=== PATIENT | male | born 2000 | race Caucasian/White ===

== ENCOUNTER 2024-07-31 03:05 | Emergency (ER) | payer MEDICAID, OTHER ==
[~2024-07-31] VITALS: Ht 177.8 cm; Wt 90.9 kg
[2024-07-31 04:37] LABS: Basophils # (auto) 0 10 ^3/uL (0-0.2); Basophils % (auto) 0.8 % (0.0-2.0); Eosinophils # (auto) 0 10 ^3/uL (0-0.8); Eosinophils % (auto) 0.2 % (0.0-7.0); Hematocrit 49.1 % (41.0-53.0); Hemoglobin 16.7 g/dL (13.5-17.5); Lymphocytes # (auto) 1.5 10 ^3/uL (0.4-5.4); Lymphocytes % (auto) 28.1 % (10.0-50.0); Mean Corpuscular Hemoglobin 29.8 pg (28.0-32.0); Mean Corpuscular Hgb Conc. 34.1 g/dL (32.0-36.0); Mean Corpuscular Volume 87.4 fL (80.0-100.0); Monocytes # (auto) 0.3 10 ^3/uL (0-1.3); Monocytes % (auto) 4.6 % (0.0-12.0); Neutrophils # (auto) 3.6 10 ^3/uL (1.6-8.6); Neutrophils % (auto) 66.3 % (37.0-80.0); Nucleated Red Blood Cells % 0.1 %; Platelet Count (auto) 291 10^3/uL (140-450); Red Blood Cells 5.61 10^6/uL (4.5-5.90); Red Cell Distribution Width 13.7 % (11.8-14.3); White Blood Cell 5.4 10^3/uL (4.4-10.8)
[2024-07-31 04:59] LABS: Alanine Aminotransferase 31 U/L (7-40); Alkaline Phosphatase 115 U/L (46-116); Anion Gap 10 (5-15); Aspartate Aminotransferase 37 U/L (13-40); BUN/Creatinine Ratio 14.9 (10.0-20.0); Blood Alcohol 181.9 mg/dL (<10); Blood Urea Nitrogen 13 mg/dL (9-23); Calcium 9.9 mg/dL (8.7-10.4); Carbon Dioxide 26 mmol/L (20-31); Chloride 104 mmol/L (98-107); Glucose 102 mg/dL (74-106); Sodium 140 mmol/L (136-145)
[2024-07-31 05:00] LABS: Bilirubin, Total 0.9 mg/dL (0.2-1.0); Total Protein 7.8 g/dL (5.7-8.2)
[2024-07-31 05:04] LABS: Albumin 5.1 g/dL (3.2-4.8)
--- NOTE | 2024-07-31 05:12 | ED.PDOC ---
History of Present Illness HPI Comments 24 y/o M, with a history of asthma and polysubstance abuse, presents with his girlfriend and mother for c/o chest pain and palpitations, today. Patient is a poor historian. Per girlfriend, patient began complaining of symptoms after being picked up from a bar, where he endorses on consuming both alcohol and cocaine there, earlier, at 0140. He is stated to vomited 1x prior to onset of symptoms. Patient also reported to girlfriend on suspecting that the cocaine he consumed being "something else." due to never experiencing symptoms like current ones before with previous uses. Patient has no reported palpitations, dizziness, weakness, fever, chills, or other associated symptoms or modifiers at this time. Chief Complaint: Chest Pain Time Seen by MD: 03:30 Primary Care Provider: NONE Reviewed Notes: Nurses Notes, Medications, Allergies Information Source: Relative (Mother), Significant Other Mode of Arrival: Ambulatory Severity: Moderate Timing: Hours Duration: Since onset Prehospital treatment: None Review of Systems: REVIEW OF SYSTEMS: No fever, no chills, or fatigue HEENT: No sore throat, no earache, no congestion, no neck pain. Cardiac: Chest pain, palpitations. Lungs: No shortness of breath, no cough. GI: No nausea, no vomiting, no diarrhea, no constipation, no abdominal pain : No dysuria, frequency, or urgency. No hematuria. Musculoskeletal: No joint pain , no joint swelling, no extremity edema. Skin: No rash, no itching. Neuro: No headache, no dizziness, no weakness Vital Signs Vital Signs Date Time Temp Pulse Resp B/P (MAP) Pulse Ox O2 Delivery O2 Flow Rate FiO2 07/31/24 05:12 111 07/31/24 03:33 26 100 0 07/31/24 03:33 98.4 146/82 (103) Physical Exam General: Lethargic. No acute distress. Patient is basically whispering to speak but is unable to answer questions Skin: Skin in warm, dry and intact. Appropriate color for ethnicity. HEENT: The head is normocephalic and atraumatic. Bilateral conjunctival injection, pupils dilated but reactive. No signs of nystagmus. Eyelids are normal in appearance without swelling or lesions. Oral mucosa is pink and moist Neck: The neck is supple with normal range of motion. No JVD. Cardiac: Heart rate and rhythm are normal. No murmurs, gallops, or rubs are auscultated. Respiratory: No signs of respiratory distress. Lung sounds are clear in all lobes bilaterally without rales, ronchi, or wheezes. Abdominal: Abdomen is soft, non-tender without distention. Bowel sounds are present and normoactive in all four quadrants. Extremities: Upper and lower extremities are atraumatic in appearance without deformity or edema. Neurological: The patient is awake, alert and oriented to person, place, and time with normal speech. Speech is clear. There is no facial asymmetry. Psychiatric: Appropriate mood and affect. Good judgement and insight. No visual or auditory hallucinations. Past Medical History PAST MEDICAL HISTORY: Asthma Surgical History: Denies all surgeries Family History Family History: Unknown Social History Smoker: Non-Smoker Alcohol: Heavy Drugs: Cocaine Lives In: Home Was a procedure done? Was a procedure done?: No EKG EKG #1: Pulse Rate (adult): 110 [place]: Normal Cardiac Rhythm: ST, PVC's Block: None Hypertrophy: None ST: Normal EKG #2: Pulse Rate (adult): 111 [place]: Normal Cardiac Rhythm: ST, PVC's Block: None Hypertrophy: None ST: Normal Differential Dx Considerations may include: substance abuse, indigestion of unknown substance, IN, PE, ACS, angina, costochondritis, pericarditis, withdrawal, anxiety, panic attack, musculoskeletal pain X-Ray, Labs, Meds, VS Vital Signs Date Time Temp Pulse Resp B/P (MAP) Pulse Ox O2 Delivery O2 Flow Rate FiO2 07/31/24 05:12 111 07/31/24 03:33 107 26 100 0 07/31/24 03:33 98.4 107 26 146/82 (103) 100 07/31/24 03:29 110 Lab Test 07/31/24 05:29 07/31/24 05:22 07/31/24 04:02 Range/Units Troponin I High Sensitivity Pending < 3 L </=54 ng/L Urine Color Colorless Yellow Urine Clarity Clear Clear Urine pH 5.5 5.0-9.0 Urine Specific [place] 1.002 1.001-1.035 Urine Protein Negative Negative Urine Ketones Negative Negative Urine Blood Negative Negative /uL Urine Nitrite Negative Negative Urine Bilirubin Negative Negative Urine Urobilinogen Normal Negative mg/dL Urine Leukocyte Esterase Negative Negative /uL Urine RBC <1 0 - 3 /hpf Urine Microscopic WBC < 1 0-3 /HPF Urine Squamous Epithelial Cells None seen <5 /hpf Urine Bacteria None seen None Seen /hpf Urine Glucose Normal Normal mg/dL Urine Opiates Screen Pending Urine Fentanyl Screen Pending Urine Barbiturates Screen Pending Urine Phencyclidine Screen Pending Urine Amphetamines Screen Pending Urine Benzodiazepines Screen Pending Urine Cocaine Screen Pending Urine Cannabinoids Screen Pending White Blood Count 5.4 4.4-10.8 10^3/uL Red Blood Count 5.61 4.5-5.90 10^6/uL Hemoglobin 16.7 13.5-17.5 g/dL Hematocrit 49.1 41.0-53.0 % Mean Corpuscular Volume 87.4 80.0-100.0 fL Mean Corpuscular Hemoglobin 29.8 28.0-32.0 pg Mean Corpuscular Hemoglobin Concent 34.1 32.0-36.0 g/dL Red Cell Distribution Width 13.7 11.8-14.3 % Platelet Count 291 140-450 10^3/uL Mean Platelet Volume 7.4 6.9-10.8 fL Neutrophils (%) (Auto) 66.3 37.0-80.0 % Lymphocytes (%) (Auto) 28.1 10.0-50.0 % Monocytes (%) (Auto) 4.6 0.0-12.0 % Eosinophils (%) (Auto) 0.2 0.0-7.0 % Basophils (%) (Auto) 0.8 0.0-2.0 % Neutrophils # (Auto) 3.6 1.6-8.6 10 ^3/uL Lymphocytes # (Auto) 1.5 0.4-5.4 10 ^3/uL Monocytes # (Auto) 0.3 0-1.3 10 ^3/uL Eosinophils # (Auto) 0 0-0.8 10 ^3/uL Basophils # (Auto) 0 0-0.2 10 ^3/uL Nucleated Red Blood Cells 0.1 % Sodium Level 140 136-145 mmol/L Potassium Level 4.0 3.5-5.1 mmol/L Chloride Level 104 98-107 mmol/L Carbon Dioxide Level 26 20-31 mmol/L Anion Gap 10 5-15 Blood Urea Nitrogen 13 9-23 mg/dL Creatinine 0.87 0.700-1.30 mg/dL Glomerular Filtration Rate Calc 124 >90 mL/min BUN/Creatinine Ratio 14.9 10.0-20.0 Serum Glucose 102 74-106 mg/dL Calcium Level 9.9 8.7-10.4 mg/dL Total Bilirubin 0.9 0.2-1.0 mg/dL Aspartate Amino Transferase (AST) 37 13-40 U/L Alanine Aminotransferase (ALT) 31 7-40 U/L Alkaline Phosphatase 115 46-116 U/L B-Type Natriuretic Peptide 7.74 0-100 pg/mL Total Protein 7.8 5.7-8.2 g/dL Albumin 5.1 H 3.2-4.8 g/dL Plasma/Serum Blood Alcohol 181.9 H <10 mg/dL Time of 1ST Reevaluation: 04:00 Reevaluation 1ST: Unchanged Patient Education/Counseling: Other Family Education/Counseling: No Family Present Departure 1 Departure Time of Disposition: 05:46 Impression: Primary Impression: Chest pain Additional Impression: Alcohol intoxication Disposition: 01 HOME / SELF CARE / HOMELESS Condition: Stable Additional Instructions: ED DISCHARGE INSTRUCTIONS Instructions: Please read all instructions provided in this packet carefully. Although you have been discharged from the Emergency Department, this does not mean that you have a "clean bill of health". No definitive diagnosis for your symptoms has been made today. It is possible that you are in the process of developing a serious illness. This is why you must return to the ED without fail if any new or worsening symptoms (especially if your symptoms include chest pain, trouble breathing, abdominal pain, fever, headache, confusion, trouble seeing, or trouble walking) It is also very important that you see a primary care doctor within the next 3-5 days to follow up. If you are unable to get an appointment, return to the ED for re-evaluation. CHEST PAIN EDUCATION There are many things that can cause chest pain. Some are not serious and will get better on their own in a few days. But some kinds of chest pain need more testing and treatment. Your doctor may have recommended a follow-up visit in the next few days. If you are not getting better, you may need more tests or treatment. Even though your doctor has released you, you still need to watch for any problems. The doctor carefully checked you, but sometimes problems can develop later. If you have new symptoms or if your symptoms do not get better, get medical care right away. If you have worse or different chest pain or pressure that lasts more than 5 minutes or you passed out (lost consciousness), call 911 or seek other emergency help right away. A medical visit is only one step in your treatment. Even if you feel better, you still need to do what your doctor recommends, such as going to all suggested follow-up appointments and taking medicines exactly as directed. This will help you recover and help prevent future problems. How can you care for yourself at home? Rest until you feel better. Take your medicine exactly as prescribed. Call your doctor if you think you are having a problem with your medicine. Do not drive after taking a prescription pain medicine. When should you call for help? Call 911 if: You passed out (lost consciousness). You have severe difficulty breathing. You have symptoms of a heart attack. These may include: Chest pain or pressure, or a strange feeling in your chest. Sweating. Shortness of breath. Nausea or vomiting. Pain, pressure, or a strange feeling in your back, neck, jaw, or upper belly or in one or both shoulders or arms. Lightheadedness or sudden weakness. A fast or irregular heartbeat. After you call 911, the dishing machine operator may tell you to chew 1 adult-strength or 2 to 4 low-dose aspirin. Wait for an ambulance. Do not try to drive yourself. Call your doctor now or seek immediate medical care if: You have any trouble breathing. You have new or different chest pain. You are dizzy or lightheaded, or you feel like you may faint. Watch closely for changes in your health, and be sure to contact your doctor if you do not get better as expected. Current as of: January 19, 2024 Author: [employer] Staff? Drinking and Your Health Drinking too much alcohol on a regular basis harms your liver, nervous system, heart, and brain. It can cause health problems or make them worse. These problems include: Cirrhosis or pancreatitis. High blood pressure. Osteoporosis. Certain types of cancer, including breast cancer. Stroke. A brain disorder called Wernicke-Korsakoff syndrome. Heavy alcohol use also can cause stomach problems, interactions between me dicines and alcohol, and sexual problems. It can lead to violence, accidents, social isolation, and problems at work, school, or home. You also may have legal problems, such as traffic tickets or car crashes, as a result of drinking. Drinking alcohol can cause unique problems for older adults and people who are or who have other health conditions. Drinking also makes symptoms of mental health conditions worse. When you have a drinking problem and a mental health condition, it's called a dual diagnosis. It's very important to treat all mental health conditions, such as depression. You may drink less when mental health conditions are treated. How much alcohol is safe to drink? Experts don't know if alcohol is safe in any amount. If you choose to drink alcohol, the kern is to keep your drinking at low to moderate levels. People who drink too much are hurting their health. Heavy drinking can cause all kinds of problems, from stomach and sexual problems to stroke and liver disease. It can also lead to problems at work, school, or home and to drunk driving and violence. It may be hard to know if you are drinking too much. Because of things like age, sex, weight, and health history, alcohol affects people differently. But here's what experts say: If you don't drink, it's best not to start. If you do drink, limit how much you drink. A standard drink is 12 fl oz (355 mL) of beer, 5 fl oz (148 mL) of wine, or 1.5 fl oz (44 mL) of hard liquor. Experts recommend that: Women have no more than 1 drink a day or 7 drinks a week. Men have no more than 2 drinks a day or 14 drinks a week. If you are 65 years and older, you may want to be even more cautious about the amount of alcohol you drink. Or you may not want to drink at all. This is because alcohol affects older adults differently. Experts consider excessive alcohol use to be high-risk drinking. This includes: Having more than 4 drinks in a day or more than 8 drinks a week if you are a woman. Having more than 5 drinks in a day or more than 15 drinks a week if you are a man. Binge drinking. This means drinking more than 4 drinks within 2 hours if you are a woman or more than 5 drinks within 2 hours if you are a man. It's important to remember that the only way to guarantee that drinking alcohol will not harm you at all is to not drink at all. When is drinking alcohol unhealthy or unsafe? There are certain times when drinking any amount of alcohol is unhealthy. You shouldn't drink if: You need to drive a car or operate other machinery. You are . Drinking during makes a miscarriage or alcohol syndrome more likely. A child who was exposed to alcohol in the womb may have physical and emotional problems. These problems can range from mild difficulties to severe defects. You take certain medicines. Ask your doctor or pharmacist if you can safely drink alcohol with any of the medicines you take. Common medicines that interact with alcohol include: Acetaminophen (such as Tylenol). Antibiotics. Antihistamines. Aspirin and other medicines to prevent clotting of blood (anticoagulants). Tranquilizers. Some medicines to treat depression (antidepressants) or other mental disorders. Any medicine that can make you drowsy. (Check the label.) You have certain health problems. Ask your doctor if you can safely drink alcohol if you have any of the following problems: Liver, stomach, and intestine problems. Heart failure and high blood pressure. Certain blood disorders. Mental health problems. Comments 24-year-old male who presents to the emergency department with chest pain after alcohol intoxication in unknown sepsis congestion. Patient has been awake, alejandro rt with stable vital signs during the ED observation. EKG negative for ischemic changes. Patient is mildly tachycardic although he is noted to be anxious. He is not hypoxic. High sensitivity troponin negative. CXR shows no acute process. Presentation not suggestive of acute coronary syndrome, pulmonary embolism or aortic dissection. Patient improved at time of discharge. No hypoxia, respiratory distress or dyspnea at discharge. Patient able to ambulate without difficulty. Critical Care Note Critical Care Time?: No Stability Stability form required: No Heart Score Heart Score: Heart Score Response (Comments) Value History N/A 0 EKG Normal 0 Age <45 0 Risk Factors 1 or 2 risk factors 1 Troponin Normal limit 0 Total 1 I personally scribed for LEVI BOLTON MD ([email or web address]) on 07/31/24 at 05:12. Electronically submitted by Carlos Gerard ([email or web address]). I personally scribed for LEVI BOLTON MD ([email or web address]) on 07/31/24 at 05:37. Electronically submitted by Carlos Gerard ([email or web address]). LEVI BOLTON MD Jul 31, 2024 05:12
[2024-07-31 05:23] LABS: Urine Bacteria None Seen /hpf (None Seen)
[2024-07-31 05:48] LABS: Urine Blood Negative /uL (Negative); Urine Clarity Clear (Clear); Urine Color Colorless (Yellow); Urine Protein, UAD Negative (Negative); Urine Specific Gravity 1.002 (1.001-1.035); Urine Squamous Epithelial Cell None Seen /hpf (<5); Urine Urobilinogen Normal (Negative); Urine pH 5.5 (5.0-9.0)
[2024-07-31 05:54] LABS: Urine WBC < 1 /HPF (0-3)
[2024-07-31 06:18] LABS: Amphetamine Screen, Urine Neg (NEGATIVE); Barbiturate Scree,Urine Neg (NEGATIVE); Benzodiazephine Screen, Urine Neg (NEGATIVE); Cannabinoid Screen, Urine Neg (NEGATIVE); Cocaine Screen, Urine Pos (NEGATIVE); Opiate Scree,Urine Neg (NEGATIVE); Phencyclidine Screen, Urine Neg (NEGATIVE)
[2024-07-31] MEDS: MORPHINE SULFATE INJ 2 MG/ml SYRG IV ONE (06:54)
[2024-07-31] MEDS: ASPirin 81 mg TAB PO ONE (06:57)
[2024-07-31 06:58] VITALS: PULSE 100; RESP 22; O2SAT 98
--- NOTE | 2024-07-31 07:07 | ECG ---
[facility] Test Date: 2024-07-31 Test Time: 04:56:07 Pat Name: LUCRECIA MANUEL Department: ER Room: Gender: M [employer] Assisted Living: : 2000 Requested By: LEVI BOLTON Order Number: [id number] Reading MD: Abdi Walton Measurements Intervals [place] Rate: 111 P: 51 MD: 132 QRS: 96 QRSD: 94 T: 18 QT: 347 QTc: 472 Interpretive Statements Sinus tachycardia Borderline right axis deviation Borderline ST elevation, anterolateral leads Borderline prolonged QT interval Baseline wander in lead(s) V3 Electronically Signed On 08-03-2024 10:37:55 PST by Abdi Walton Please click the below link to view image of tracing.
--- NOTE | 2024-07-31 09:51 | DVH ---
CHEST RADIOGRAPH Indication: cp Technique: Single frontal view of the chest was obtained Comparison: None FINDINGS: Lines and Tubes: None Lungs: No focal consolidation. Pleura: No effusion. No pneumothorax. Cardiomediastinal contours: Unremarkable Bones: No acute osseous abnormality. IMPRESSION: 1. No acute cardiopulmonary disease. A MONTEIRO
[2024-07-31 10:42] VITALS: BP 132/77; PULSE 94; RESP 16; TEMP 98.3; O2SAT 100
--- NOTE | 2024-07-31 11:41 | ECG ---
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
--- NOTE | 2024-08-01 01:36 | ECG ---
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
== END 2024-07-31 10:45 | disposition home or self-care (01) ==
LOC: ER 03:05
DX: R07.89 Other chest pain (principal); F10.129 Alcohol abuse with intoxication, unspecified; J45.909 Unspecified asthma, uncomplicated; R00.2 Palpitations; Y90.9 Presence of alcohol in blood, level not specified
CPT/HCPCS: 36415; 71045; 80053; 80307; 80320; 81001; 83880; 84484; 85025; 93005